=== PATIENT | male | born 1970 | race Caucasian/White ===

== ENCOUNTER 2024-04-16 13:04 | Emergency (ER) | payer MEDICAID ==
[~2024-04-16] VITALS: Ht 175.3 cm; Wt 73.5 kg
[2024-04-16 13:15] VITALS: BP 142/89; PULSE 88; RESP 16; TEMP 98; O2SAT 98
[2024-04-16] MEDS: ONDANSETRON 4 MG/2 ML VIAL IVP ONE (13:52)
[2024-04-16] MEDS: MORPHINE SULFATE 4 MG/ML SYR IVP ONE (13:53)
[2024-04-16 14:04] LABS: BASOPHILS # (AUTO) 0.1 K/uL (0.00-0.22); EOSINOPHILS # (AUTO) 0.2 K/uL (0-0.4); EOSINOPHILS % (AUTO) 2.5 % (0.0-4.0); HEMATOCRIT 38.9 % (36-52); HEMOGLOBIN 13.2 g/dL (12.0-18.0); LYMPHOCYTES # (AUTO) 1.7 K/uL (2.0-11.5); LYMPHOCYTES % (AUTO) 20.6 % (20.5-51.1); MEAN CORPUSCULAR HEMOGLOBIN 30 pg (27-31); MEAN CORPUSCULAR HGB CONC 34 g/dL (33-37); MEAN CORPUSCULAR VOLUME 89.3 fL (80-94); MONOCYTES # (AUTO) 0.5 K/uL (0.8-1.0); MONOCYTES % (AUTO) 6.1 % (1.7-9.3); NEUTROPHILS # (AUTO) 5.8 K/uL (1.8-7.7); NEUTROPHILS % (AUTO) 69.8 % (42.2-75.2); PLATELET COUNT (AUTO) 276 K/uL (140-450); RED BLOOD CELL COUNT(AUTO) 4.36 MIL/uL (4.20-6.10); WHITE BLOOD COUNT (AUTO) 8.3 K/uL (4.8-10.8)
[2024-04-16 14:10] LABS: ANION GAP 14.5 (8-16); CALCIUM 8.9 mg/dL (8.5-10.1); CARBON DIOXIDE 26.5 mmol/L (21-32); CREATININE 1.7 mg/dL (0.6-1.3)
[2024-04-16 16:44] LABS: BILIRUBIN,URINE 1+ (NEGATIVE); BLOOD, URINE 2+ (NEGATIVE); COLOR,URINE YELLOW (YELLOW); LEUKOCYTE ESTERASE ,URINE 1+ (NEGATIVE); NITRITE, URINE POSITIVE (NEGATIVE); PH,URINE 6.5 (5.0-9.0); PROTEIN,URINE 1+ (NEGATIVE); UGLUCOSE NEGATIVE (NEGATIVE); UROBILINOGEN,URINE 0.2 EU/dL (0.2 - 1)
[2024-04-16 16:45] LABS: APPEARANCE,URINE SLIGHTLY HAZY (CLEAR)
[2024-04-16] MEDS ORDERED: GABA300C PO (17:00)
[2024-04-16] MEDS ORDERED: LEVO-481 PO (17:00)
[2024-04-16] MEDS ORDERED: ACET500T99 PO (17:00)
[2024-04-16 17:04] LABS: ICTOTEST POSITIVE (NEGATIVE)
[2024-04-16 17:05] LABS: BACTERIA,URINE 2+ /HPF (None Seen); MUCUS,URINE None Seen /LPF (None Seen); SQUAMOUS EPITHELIAL CELL,UR 0-3 (FEW) /LPF (0-3 (FEW))
[2024-04-16] MEDS ORDERED: cefTRIAXone 500 MG VIAL ONE (17:12)
[2024-04-16] MEDS ORDERED: LIDOCAINE MPF 1% 5 ML ONE (17:13)
[2024-04-16] MEDS: cefTRIAXone 500 MG in LIDOCAINE MPF 1% 1 ML IM ONE (17:19)
[2024-04-16] MEDS: HYDROcodone/APAP 5/325 MG 1 TAB TAB PO ONE (17:35)
[2024-04-16 18:00] VITALS: BP 135/88; PULSE 91; RESP 16; O2SAT 98
== END 2024-04-16 18:00 | disposition home or self-care (01) ==
LOC: MED 13:04
DX: N45.1 Epididymitis (principal); N39.0 Urinary tract infection, site not specified; R03.0 Elevated blood-pressure reading, without diagnosis of hypertension; Z79.899 Other long term (current) drug therapy
CPT/HCPCS: 36415; 76870; 80048; 81001; 85025; 87086; 87186; 87491; 96372; 96374; 96375; 99285; J0696; J2003; J2270; J2405; Q0092